=== PATIENT | male | born 1955 | race Caucasian/White ===

== ENCOUNTER 2018-10-14 09:33 | Day surgery (SDC) | payer BC ==
[~2018-10-14 09:33] MED LIST: LIDOCAINE HCL 1% MPF 30 SOL ONE; PROPOFOL 500 MG/50 ML EMU IV ONE
[2018-10-14 11:54] VITALS: BP 118/72; PULSE 58; RESP 18; TEMP 97.4; O2SAT 98
== END 2018-10-14 12:12 | disposition home or self-care (01) ==
LOC: SURG 09:33
PROVIDERS: ATTEND Surgery
DX: Z12.11 Encounter for screening for malignant neoplasm of colon (principal); K64.9 Unspecified hemorrhoids
CPT/HCPCS: J2001; J2704